=== PATIENT | male | born 1955 | race Caucasian/White ===

== ENCOUNTER 2022-10-14 10:36 | Inpatient (IN) | payer OTHER ==
--- OUTSIDE RECORDS SUMMARY | 2022-10-14 10:41 | XMS REPORT | Continuity of Care Document ---
:1955 Author Organization [facility] t Address [address] [place] [address] Care Team Providers Name Role Phone Shaji Rausch Primary Care Physician Messi Morgan Attending Clinician Unavailable Mando Mccoy Attending Clinician Unavailable LEONELA GOINS Attending Clinician Unavailable JENNA MOORE Attending Clinician Unavailable SANDRA VIZCARRA Attending Clinician Unavailable SILVIA CASAS Attending Clinician Unavailable LUISA PACHECO Attending Clinician Unavailable Tripp Raines Attending Clinician Unavailable Payers Payer Name Policy Type Policy Number Effective Date Expiration Date S roberto zumatek [facility] [id number] 2022 2023spring OON 00:00:00 00:00:00 [facility] [id number] 2016 PLAN SSI 00:00:00 [place] [id number] 2018 AFFILIATE 00:00:00 BCBS ADV HMO [id number] 2014 EXCHANGE 00:00:00 Problems Condition Condition Condition Status Onset Resolution Last Treating Co mments Source Name Details Category Date Date Treatment Clinician Date Acute Acute Disease Active Overview: [facility]: g of this Medical failure failure 00 note Center might be different from the original. SNOMED/[place] [id number] Bradycardi Bradycardi Disease Active [facility] Center Syncope Syncope Disease Active [facility] Hematuria Hematuria Disease Active [facility] [address] Disease Active [facility] elevation elevation 8-11 [facility] myocardial myocardial 00:00: Me dical infarction infarction 00 Ce nter (STEMI) of (STEMI) of anterolate anterolate ral wall, ral wall, initial initial episode of episode of care care Paroxysmal Paroxysmal Disease Active [facility] atrial atrial 8-11 [facility] fibrillati fibrillati 00:00: Me dical on on 00 Center 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 [facility] (current) (current) 8-11 [facility] use of use of 00:00: Medical anticoagul anticoagul 00 Ce nter ants ants Ventricula Ventricula Disease Active [facility] r 8[facility]11 [facility] tachycardi tachycardi 00:00: Me dical a a 00 Center Acute Acute Disease Active [facility] renal renal 8-09 [facility] failure failure 00:00: Medical 00 Center Cardiogeni Cardiogeni Disease Active [facility] shock c shock 7-20 [facility] 00:[facility] 00 Center Coronary Coronary Disease Active [facility] atheroscle atheroscle 7-20 [facility] kes rosis of rosis of 00:00: Medica l [place] 00 Center coronary coronary artery artery Coronary Coronary Disease Active [facility] angioplast angioplast 7-20 Ric[facility]le kes y status y status 00:00: Medica l 00 Center Allergies, Adverse Reactions, Alerts Allergy Allergy Status Severity Reaction(s) Onset Inactive Treating Comm ents Source Name Type Date Date Clinician No Known DA Active U [facility] 5-25 Allergie 00:00: s 00 No Known DA Active U [facility] 4-17 Allergie 00:00: s 00 No Known [facility]- Allergie 00:00: s 00 No Known DA Active U [facility] Drug 1- Allergie 00:00: s 00 Heparin Propensi Active Positive [facility] Analogue ty to 08-30 heparin [facility] adverse 00:00: antibody Medical reaction 00 by SHANNEN Center s OD 0.449. WILLIAM Pending. 08/30/13 3:05 PM Lorraine Lomeli MDNegativ e serotonin release assay. 1% low dose, 0% high dose. 09/02/2013 11:50 AP MD Michael Epstein MD 09/02/2013 11:47 AM HEPARIN Allergy Active [facility] ANALOGUE 08-30 [facility] S 00:[facility]: Medical 00 Center Family History Family Member Diagnosis Comments Start Date Stop Date Source Natural father Early [facility] Natural father Hearing loss [facility] Natural father Heart disease [facility] Natural father Hypertension [facility] Natural father Vision loss [facility] Natural mother Vision loss [facility] Social History Social Habit Start Date Stop Date Quantity Comments Source History of tobacco Current smoker [facility] History of Social 2016-08-07 2016-08-[address] function 00:00:00 00:00:00 Hospital Alcohol intake 2014-02-21 2014-02-21 [facility] (finding) Alcohol Comment 2014-02-21 2014-02-[address] [facility] 00:00:00 00:00:00 back on 11/2013 Medical C enter Cigarettes smoked 2013-10-12 2013-10-[address] [facility] current (pack per 00:00:00 00:00:00 Medical Center day) - Reported Cigarette 2013-10-12 2013-10-[address] [facility] pack-years 00:00:00 00:00:00 Medical Center Sex Assigned At [address] [facility] 00:00:00 00:00:00 Medical Center Smoking Status Start Date Stop Date Source Ex-smoker 2016-03-28 00:00:00 2016-03-28 00:00:00 [facility] Medications Ordered Filled Start Stop Current Ordering Indication Dosage Frequency Signature Comments Components Source Medication Medication Date Date Medication? Clinician (SIG) Name Name atorvastati Yes QD Take by Met alexis hall (LIPITOR) 2-[address] 10 MG 23:15: daily. [facility]ospita tablet 48 l carvedilol Yes Q.5D Take by Meth mariela (COREG) 2-[address] 12.5 MG 23:15: (two) Hospita tablet 48 times a l day with meals. losartan Yes QD Take by Method i (COZAAR) 2-[address] 100 MG 23:15: daily. Hospita tablet 48 l furosemide Yes Q.5D Take by Meth mariela (LASIX) 20 2-[address] mg tablet 23:15: (two) Hospita 48 times a l day. clopidogrel Yes QD Take by Met espinoza (PLAVIX) 75 2-[address] mg tablet 23:15: daily. Hospit a 48 l Immunizations Ordered Immunization Filled Immunization Date Status Commen ts Source Name Name Covid-19 Vaccine MRNA 2020-05-[address] [facility] (PF) 12yr+ 00:00:00 [facility] (Pfizer/BioNTech)(IMM6 ) Covid-19 Vaccine MRNA 2020-05-[address] [facility] (PF) 12yr+ 00:00:00 [facility] ([employer])(IMM6 ) Covid-19 Vaccine MRNA 2020-05-[address] [facility] (PF) 12yr+ 00:00:00 [facility] ([employer]/BioNTech)(IMM6 ) Covid-19 Vaccine MRNA 2020-05-[address] [facility] (PF) 12yr+ 00:00:00 [facility] ([employer])(IMM6 01) Influenza TIV (IM) 2014-02-[address] [facility] 00:00:00 [facility] Influenza TIV (IM) 2014-02-[address] [facility] 00[facility]00:00 [facility] PPD Test 2013-09-[address] [facility] 00:00:00 [facility] PPD Test 2013-09-[address] [facility] 00:00:00 [facility] Pneumococcal 2013-08-[address] [facility] Polysaccharide 00:00:00 Medical Ce nter (Pneumovax) Pneumococcal 2013-08-[address] [facility] Polysaccharide 00:00:00 Medical Ce nter (Pneumovax) Procedures This patient has no known procedures. Plan of Care Planned Activity Planned Date Details Comments Source Future Scheduled 2022-10-07 Influenza Vaccine (#1) [facility] 00:00:00 [code = Influenza Medical Ce nter Vaccine (#1)] Future Scheduled 2022-10-07 Influenza Vaccine (#1) [facility] 00:00:00 [code = Influenza Medical Ce nter Vaccine (#1)] Future Scheduled 2022-02-[address] [facility] Test 00:00:00 (12+) [code = Medical Center DEPRESSION SCREENING (12+)] Future Scheduled 2022-02-06 FALLS RISK SCREENING [facility] Test 00:00:00 [code = FALLS RISK Medical C enter SCREENING] Future Scheduled 2022-02-[address] [facility] Test 00:00:00 (12+) [code = Medical Center DEPRESSION SCREENING (12+)] Future Scheduled 2022-02-06 FALLS RISK SCREENING [facility] Test 00:00:00 [code = FALLS RISK Medical C enter SCREENING] Future Scheduled 2020-07-23 COVID-19 VACCINE (3 - [facility] 00:00:00 Booster for Pfizer Medical C enter series) [code = COVID-19 VACCINE (3 - Booster for Pfizer series)] Future Scheduled 2020-07-23 COVID-19 VACCINE (3 - [facility] 00:00:00 Booster for Pfizer Medical C enter series) [code = COVID-19 VACCINE (3 - Booster for Pfizer series)] Future Scheduled 2014-09-04 Screening for malignant [facility] Test 00:00:00 neoplasm of colon Medical Ce nter (procedure) [code = 820826758] Future Scheduled 2014-09-04 Screening for malignant [facility] Test 00:00:00 neoplasm of colon Medical Ce nter (procedure) [code = 702163147] Future Scheduled 2014-09-04 Screening for malignant [facility] Test 00:00:00 neoplasm of colon Medical Ce nter (procedure) [code = 318485162] Future Scheduled 2014-09-04 Screening for malignant [facility] Test 00:00:00 neoplasm of colon Medical Ce nter (procedure) [code = 025301054] Future Scheduled 2003-06-29 SHINGLES VACCINES ([address] [facility] Test 00:00:00 2) [facility] Future Scheduled 2003-06-29 SHINGLES VACCINES ([address] [facility] Test 00:00:00 2) [facility] 2)] Future Scheduled 1972 DTAP/TDAP/TD VACCINES [facility] 00:00:00 (1 - Tdap) [code = Medical C enter DTAP/TDAP/TD VACCINES (1 - Tdap)] Future Scheduled 1972 DTAP/TDAP/TD VACCINES [facility] 00:00:00 (1 - Tdap) [code = Medical C enter DTAP/TDAP/TD VACCINES (1 - Tdap)] Future Scheduled [address] [facility] Test 00:00:00 Counseling [facility] Medical Cente r Screening (12+) [code = Tobacco Cessation Counseling and Screening (12+)] Future Scheduled [address] [facility] Test 00:00:00 Counseling and Medical Cente r Screening (12+) [code = Tobacco Cessation Counseling and Screening (12+)] Future Scheduled 1953 CT Colonography (combo) [facility] Test 00:00:00 [code = CT Colonography [facility] (combo)] Future Scheduled 1953 Screening for malignant [facility] Test 00:00:00 neoplasm of colon Medical Ce nter (procedure) [code = 983487413] Future Scheduled 1953 Screening for malignant [facility] Test 00:00:00 neoplasm of colon Medical Ce nter (procedure) [code = 146277130] Future Scheduled 1955 Sigmoidoscopy [code = [facility] 00:[facility]:00 Sigmoidoscopy] Medical Cente r Future Scheduled 1953 CT Colonography (combo) [facility] Test 00:00:00 [code = CT Colonography [facility] (combo)] Future Scheduled 1953 Screening for malignant [facility] Test 00:00:00 neoplasm of colon Medical Ce nter (procedure) [code = 057697566] Future Scheduled 1953 Screening for malignant [facility] Test 00:00:00 neoplasm of colon Medical Ce nter (procedure) [code = 275703954] Future Scheduled 1955 Sigmoidoscopy [code = [facility] 00:00:00 Sigmoidoscopy] Medical Cente r Encounters Start End Encounter Admission Attending Care Care Encounter Source Date/Time Date/Time Type Type Clinicians Facility Department ID 2022-07-11 Emergency HFD HFD [id number] COLETTE - 18:33:44 [facility] ent 2021-05-25 Inpatient Elective Eddie [facility] [id number] [facility] 14:30:00 Messi 07 2021-02-26 Inpatient Elective Nadine [facility] [id number] [facility] 07:00:00 Mando 13 2020-12-09 Inpatient Nadine, [facility] [id number] [facility] 10:00:00 Mando 74 2022-10-12 2022-10-12 Outpatient SFA SFA [id number] Manuel 08:54:55 08:54:55 [id number] F Robinson 2022-10-07 2022-10-07 Outpatient SFA SFA [id number] Manuel 18:06:16 18:06:16 [id number] F [place] 2022-08-23 2022-08-24 [facility] [id number] [place] 10:11:00 21:30:00 [facility] 2022-08-23 2022-08-23 Emergency [facility] [id number] [place] 15:29:16 15:43:47 [facility] 2022-08-15 2022-08-16 Emergency [facility] [id number] [place] 19:46:00 10:25:00 [facility] 2022-08-16 2022-08-16 Emergency CARMITA, [facility] [id number] Dan[place] 01:56:00 02:32:36 [facility] 2022-08-15 2022-08-15 [place] [id number] [place] 17:05:19 19:45:00 [facility] 2022-07-11 2022-07-11 Emergency [facility] [id number] [place] 17:58:00 22:49:00 [facility] 2022-07-11 2022-07-11 Emergency [facility] [id number] [place] 19:25:53 19:40:09 Health 2022-07-11 2022-07-11 Emergency [facility] [id number] [place] 19:25:44 19:39:29 Health 2022-07-11 2022-07-11 Emergency [facility] [id number] [place] 18:31:39 18:43:01 Health 2022-07-11 2022-07-11 Emergency [facility] [id number] [place] 18:08:38 18:35:16 Health 2022-07-11 2022-07-11 Emergency [facility] [id number] [place] 18:08:28 18:33:27 [facility] 2022-06-30 2022-06-30 Outpatient Elective ISSA Rainesbandar [facility] [id number] [facility] 07:31:00 11:00:00 [place] 15 2021-02-26 2021-02-26 [id number] 05:38:00 05:38:00 13 2021-02-19 2021-02-19 Outpatient Elective ISSA Mccoybandar [facility] [id number] [facility] 10:05:00 10:06:00 Mando Robina 2021-02-19 2021-02-19 Outpatient Elective ISSA Mccoybandar [facility] [id number] [facility] 10:05:00 10:05:00 Mando Robina 2021-02-19 2021-02-19 [facility] [id number] [facility] 10:05:00 10:05:00 Robina 2020-12-01 2020-12-01 Outpatient Elective ISSA Mccoybandar [facility] [id number] [facility] 13:27:00 13:27:00 Mando 44 2020-05-28 2020-05-28 Outpatient EL [facility] [id number] [facility] 00:00:00 00:00:00 2020-05-27 2020-05-27 Outpatient [facility] [id number] SLE 00:00:00 00:00:00 2020-05-06 2020-05-[address] [facility] [id number] SLE 00:00:00 00:00:00 2017-03-28 2017-03-28 Emergency E [facility] [id number] 02:48:00 02:48:00 [facility] 2017-03-21 2017-03-21 Emergency E [facility] [id number] [address] 04:19:00 04:19:00 [facility] Results Test Description Test Time Test Comments Results Result Comments Source CBC W/AUTO DIFF WITH PLATELETS 2022-10-13 16:47:38 Test Item Value Reference Range Interpretation Comme nts WBC (test code = 1001) 4.8 K/UL 3.5-11.0 RBC (test code = 1002) 3.29 M/UL 4.50-6.10 L HEMOGLOBIN (test code = 7.6 G/DL 13.5-17.0 L 1003) HEMATOCRIT (test code = 25.6 % 40.0-51.0 L 1004) MCV (test code = 1005) 77.8 fL 80.0-99.0 L MCH (test code = 1006) 23.1 PG 25.0-33.0 L MCHC (test code = 1007) 29.7 G/DL 31.0-36.0 L RDW (test code = 1038) 20.4 % 11.5-15.0 H NEUTROPHILS (test code = 72.1 % AU TOMATED DIFFERENTIAL 1008) CONFIRMED WITH MANUAL SLIDE REVIEW. LYMPHOCYTES (test code = 14.3 % 1010) MONOCYTES (test code = 1011) 9.9 % EOSINOPHILS (test code = 2.3 % 1012) BASOPHILS (test code = 1013) 0.6 % IMMATURE GRANULOCYTES (test 0.8 % code = 1036) NUCLEATED RBCS (test code = 0.0 /100 WBC'S See_Comment [Automated message] The 1065) system which ge nerated this result transmit alivia reference range: 0.0. The reference range was not u sed to interpret this result as normal/abnormal . PLATELET COUNT (test code = 245 K/UL 338-164 1427) ABSOLUTE NEUTROPHILS (test 3.43 K/UL 1.50-7.50 code = 1066) ABSOLUTE LYMPHOCYTES (test 0.68 K/UL 1.00-4.00 L code = 1067) ABSOLUTE MONOCYTES (test 0.47 K/UL 0.20-1.00 code = 1068) ABSOLUTE EOSINOPHILS (test 0.11 K/UL 0.00-0.50 code = 1040) ABSOLUTE BASOPHILS (test 0.03 K/UL 0.00-0.20 code = 1069) ABS IMMATURE GRANULOCYTES 0.04 K/UL 0.00-0.10 (test code = 1020) ABS NUCLEATED RBCS (test 0.00 K/UL 0.00-0.11 code = 28837) COMMENTS (test code = 1016) (NOTE) MODERATE ANISOCYTOSIS SLIGHT HYPOCHRO MASIA SLIGHT MICROCYTOSIS SL IGHT POLYCHROMASIA F EW SCHISTOCYTES PL ATELETS APPEAR NORMAL UNLESS OTHERWISE INDIC ATED, ALL TESTING PERFORM ED AT [facility], [place] [address] LABORATORY DIRE CTOR: CHANDA ESTRADA M.D. CLIA NUMBER [id number] CAP ACCREDITATION N O. [id number] COMPREHENSIVE METABOLIC [id number] 04:37:22 Test Item Value Reference Range Interpretation Comments GLUCOSE (test code = 103 MG/DL 70-99 H 2216) BUN (test code = 19 MG/DL 8-23 2207) CREATININE (test 1.20 MG/DL 0.80-1.40 code = 2214) eGFR (2020 CKD-EPI) 65 ML/MIN/1.73 >60 (test code = 50158) CALC BUN/CREAT (test 16 RATIO 6-28 code = 2235) SODIUM (test code = 143 MEQ/L 594-729 4888) POTASSIUM (test code 4.0 MEQ/L 3.5-5.4 = 2227) CHLORIDE (test code 112 MEQ/L 95-107 H = 221) CARBON DIOXIDE (test 20 MEQ/L 19-31 code = 2206) CALCIUM (test code = 8.8 MG/DL 8.5-10.5 2208) PROTEIN, TOTAL (test 6.7 G/DL 6.1-8.3 code = 2229) ALBUMIN (test code = 3.8 G/DL 3.5-5.2 2200) CALC GLOBULIN (test 2.9 G/DL 1.9-3.7 code = 2240) CALC A/G RATIO (test 1.3 RATIO 1.0-2.6 code = 2234) BILIRUBIN, TOTAL 1.3 MG/DL See_Comment H [Automated message] (test code = 2207) The syste m which generated this result transmit alivia reference range : <=1.2. The refe rence range was not u sed to interpret th is result as normal/abnormal . ALKALINE PHOSPHATASE 77 U/L 40-125 (test code = 2204) AST (test code = 13 U/L 9-50 2217) ALT (test code = 10 U/L 5-50 2218) LIPID [id number] 04:37:22 Test Item Value Reference Range Interpretation Comments CHOLESTEROL (test 97 MG/DL <200 code = 2210) TRIGLYCERIDES (test 62 MG/DL <150 code = 2232) HDL CHOLESTEROL (test 30 MG/DL >39 L code = 2220) CALC LDL CHOL (test 53 MG/DL <100 NOTE: C ALCULATED LDL code = 2237) IS BASED ON ALFONSO-HEBERT METHOD WHICHINCLUDES ADJUSTABLE TRIGLYCERIDE:VL DL CHOLESTEROL RAT IO.THIS FACTOR VARIES B Y MEASURED TRIGLY CERIDE AND NON-HDLCHOL ESTEROL CONCENTRATIONS WITH INCREASED CALCU LATED LDL SEENIN HIGH ER TRIGLYCERIDE OR LOWER NON-HDL SPECIME NS. FOR MOREINFORMATION , SEE CLIENT ANNOUNCE MENT AT [email or web address] [email or web address] RATIO LDL/HDL 1.77 RATIO <3.55 (test code = 2238) Calculi, [id number] 07:40:00 Test Item Value Reference Interpretation Comments Range Source (test code = Comment See_Comment Right Ur eter [Automated STONE.0.1) message] The sy stem which generated this result transmitted ref erence range: .. The referenc e range was not used to int erpret this result as yamil l/abnormal. Color (test code = Brown See_Comment [Automat ed message] The CALCULIU.1) system which ge nerated this result transmit alivia reference range: .. The r eference range was not used to interpret this result as normal/abnormal . Size (test code = 6x4 mm See_Comment Multiple p ieces received. CALCULIU.2) Dimensions of t he largest piecereported. [Automated message] The sy stem which generated this result transmitted ref erence range: .. The referenc e range was not used to int erpret this result as yamil l/abnormal. Weight (test code = 175 mg See_Comment [Automa alivia message] The CALCULIU.3) system which ge nerated this result transmit alivia reference range: .. The r eference range was not used to interpret this result as normal/abnormal . Composition (test Comment See_Comment Percentage (Represents the % code = CALCULIU.4) compositi on) [Automated message] The sy stem which generated this result transmitted ref erence range: .. The referenc e range was not used to int erpret this result as yamil l/abnormal. Ca oxalate dihydrate TNP See_Comment [Autom ated message] The (test code = system which ge nerated this CALCULIU.5) result transmit alivia reference range: .. The r eference range was not used to interpret this result as normal/abnormal . Hydroxyapatite (test TNP See_Comment [Autom ated message] The code = STONE.6.2) system whi ch generated this result transmit alivia reference range: .. The r eference range was not used to interpret this result as normal/abnormal . Carbonate Apatite TNP See_Comment [Automate d message] The (test code = system which ge nerated this STONE.6.3) result transmit alivia reference range: .. The r eference range was not used to interpret this result as normal/abnormal . Ca oxalate monohydr. 90 % See_Comment [Autom ated message] The (test code = system which ge nerated this CALCULIU.6) result transmit alivia reference range: .. The r eference range was not used to interpret this result as normal/abnormal . Calcium phosphate TNP See_Comment [Automate d message] The (test code = system which ge nerated this CALCULIU.7) result transmit alivia reference range: .. The r eference range was not used to interpret this result as normal/abnormal . Magnesium karime phos TNP See_Comment [Autom ated message] The (test code = system which ge nerated this CALCULIU.8) result transmit alivia reference range: .. The r eference range was not used to interpret this result as normal/abnormal . Uric acid (test code 10 % See_Comment [Autom ated message] The = CALCULIU.9) system which g enerated this result transmit alivia reference range: .. The r eference range was not used to interpret this result as normal/abnormal . Uric acid dihydrate TNP See_Comment [Automa alivia message] The (test code = system which ge nerated this CALCULIU.10) result transmit alivia reference range: .. The r eference range was not used to interpret this result as normal/abnormal . Ammonium acid urate TNP See_Comment [Automa alivia message] The (test code = system which ge nerated this CALCULIU.11) result transmit alivia reference range: .. The r eference range was not used to interpret this result as normal/abnormal . Sodium acid urate TNP See_Comment [Automate d message] The (test code = system which ge nerated this CALCULIU.12) result transmit alivia reference range: .. The r eference range was not used to interpret this result as normal/abnormal . 2,8 Dihydroxyadenine TNP See_Comment [Autom ated message] The (test code = system which ge nerated this STONE.12.2) result transmit alivia reference range: .. The r eference range was not used to interpret this result as normal/abnormal . Xanthine (test code TNP See_Comment [Automa alivia message] The = STONE.12.3) system which g enerated this result transmit alivia reference range: .. The r eference range was not used to interpret this result as normal/abnormal . Ca hydrogen phos. TNP See_Comment [Automate d message] The (test code = system which ge nerated this CALCULIU.13) result transmit alivia reference range: .. The r eference range was not used to interpret this result as normal/abnormal . Cystine (test code = TNP See_Comment [Autom ated message] The CALCULIU.14) system which ge nerated this result transmit alivia reference range: .. The r eference range was not used to interpret this result as normal/abnormal . Cholesterol (test TNP See_Comment [Automate d message] The code = CALCULIU.15) system w [employer] generated this result transmit alivia reference range: .. The r eference range was not used to interpret this result as normal/abnormal . Calcium bilirubinate TNP See_Comment [Autom ated message] The (test code = system which ge nerated this CALCULIU.16) result transmit alivia reference range: .. The r eference range was not used to interpret this result as normal/abnormal . Bilirubin (test code TNP See_Comment [Autom ated message] The = STONE.16.2) system which g enerated this result transmit alivia reference range: .. The r eference range was not used to interpret this result as normal/abnormal . Calcium Palmitate TNP See_Comment [Automate d message] The (test code = system which ge nerated this STONE.16.3) result transmit alivia reference range: .. The r eference range was not used to interpret this result as normal/abnormal . Calcium carbonate TNP See_Comment [Automate d message] The (test code = system which ge nerated this CALCULIU.17) result transmit alivia reference range: .. The r eference range was not used to interpret this result as normal/abnormal . Calcium Stearate TNP See_Comment [Automated message] The (test code = system which ge nerated this STONE.16.4) result transmit alivia reference range: .. The r eference range was not used to interpret this result as normal/abnormal . Triamterene (test TNP See_Comment [Automate d message] The code = CALCULIU.18) system [employer] generated this result transmit alivia reference range: .. The r eference range was not used to interpret this result as normal/abnormal . Drug or Metabolite TNP See_Comment [Automat ed message] The (test code = system which ge nerated this STONE.18.2) result transmit alivia reference range: .. The r eference range was not used to interpret this result as normal/abnormal . Newberyite (test TNP See_Comment [Automated message] The code = CALCULIU.19) system [employer]ile[employer] generated this result transmit alivia reference range: .. The r eference range was not used to interpret this result as normal/abnormal . Dried Blood (test TNP See_Comment [Automate d message] The code = CALCULIU.20) system w hich generated this result transmit alivia reference range: .. The r eference range was not used to interpret this result as normal/abnormal . Cellular Material TNP See_Comment [Automate d message] The (test code = system which ge nerated this CALCULIU.21) result transmit alivia reference range: .. The r eference range was not used to interpret this result as normal/abnormal . Other Component TNP See_Comment [Automated message] The (test code = system which ge nerated this STONE.21.2) result transmit alivia reference range: .. The r eference range was not used to interpret this result as normal/abnormal . Comment (test code = TNP See_Comment [Autom ated message] The CALCULIU.25) system which ge nerated this result transmit alivia reference range: .. The r eference range was not used to interpret this result as normal/abnormal . Comment (test code = TNP See_Comment [Autom ated message] The CALCULIU.26) system which ge nerated this result transmit alivia reference range: .. The r eference range was not used to interpret this result as normal/abnormal . Photo (test code = Comment See_Comment Photograp h will follow under STONE.26.2) a separate cove r [Automated message] The sy stem which generated this result transmitted ref erence range: .. The referenc e range was not used to int erpret this result as yamil l/abnormal. Please note: (test Comment See_Comment Calculi r eport will follow code = CALCULIU.27) via comp uter, mail or courierdelivery . [Automated message] The sy stem which generated this result transmitted ref erence range: .. The referenc e range was not used to int erpret this result as yamil l/abnormal. Comment: (test code Comment See_Comment Physicia n questions regarding = CALCULIU.28) Calculi Vanessa sis contact[facility] at: [phone]. [ Automated message] The sy stem which generated this result transmitted ref erence range: .. The referenc e range was not used to int erpret this result as yamil l/abnormal. Disclaimer: (test Comment See_Comment This test was developed and code = CALCULIU.29) its perf ormance characteristics determined by [facility]. It has not been cleared or appr ovedby the Food and Drug Administration. Performed at: [facility] [address], [place], [place] [id number] Di jonatan: Mando Whitlock MD, Phon e: [phone] [Automated mess age] The system which ge nerated this result transmit alivia reference range: .. The r eference range was not used to interpret this result as normal/abnormal . UC, Urine [id number] 07:30:00 Test Item Value Reference Range Interpretation Comments UC, Urine Culture (test NO GROWTH AFTER 48 code = UC) HOURS Comment: URINE CULTURE RIGHT RENAL PELVISUA, Urinalysis [id number] 11:20:00 Test Item Value Reference Range Interpretation Comments Color,Urine (test code = UCOL) [place] Yellow A Clarity,Urine (test code = Cloudy Clear A UCLAR) PH,Urine (test code = UPH.XX) 6.0 5.5-8.5 Specific [place],Urine (test >= 1.030 1.005-1.030 N code = USG) Blood,Urine (test code = UBLD) Large cells/uL Negative A Protein,Urine (test code = >=300 mg/dL Negative A UPRO) Glucose,Urine (UA) (test code Negative mg/dL Negative = UGLU) Ketones,Urine (test code = Trace mg/dL Negative A UKET) Nitrate,Urine (test code = Negative Negative UNIT) Bilirubin,Urine (test code = Small mg/dL Negative A UBIL) Urobilinogen,Urine (test code 1.0 mg/dL Negative = UURO) Leukocyte Esterase,Urine (test Large cells/uL Negative A code = ULEU) Ictotest,[id number] 11:20:00 Test Item Value Reference Range Interpretation Comments Ictotest,Urine (test code = Confirm Negative Confirm Neg UICTO) UC, Urine [id number] 11:20:00 Test Item Value Reference Range Interpretation Comments UC, Urine Culture (test NO GROWTH AFTER 48 code = UC) HOURS Complete Blood Count Auto [id number] 11:15:00 Test Item Value Reference Range Interpretation Comments White Blood Count (test code = 6.6 x10 3/uL 4.4-10.5 N WBCT) Red Blood Count (test code = 4.78 x10 6/uL 4.10-5.70 N RBC) Hemoglobin (test code = HGBT) 15.1 g/dL 13.4-17.4 N Hematocrit (test code = HCTT) 43.6 % 38.7-52.0 N Mean Corpuscular Volume (test 91.20 fL 80.00-100.00 N code = MCV) Mean Corpuscular Hemoglobin 31.6 pg 27.0-32.5 N (test code = MCH) Mean Corpuscular HGB Conc 34.60 g/dL 32.00-37.50 N (test code = MCHC) RDW Coefficient of Variation 13.8 % 11.5-14.5 N (test code = RDWCV) Platelet Count (test code = 172.0 x10 3/uL 140.0-440.0 N PLTT) Mean Platelet Volume (test 10.8 fL code = MPV) Immature Granulocytes % (Auto) 0.5 % 0.0-5.0 N (test code = IMMGRAN%) Neutrophils % (Auto) (test 71.5 % 36.0-70.0 H code = NE%) Lymphocytes % (Auto) (test 14.4 % 12.0-44.0 N code = LY%) Monocytes % (Auto) (test code 11.9 % 0.0-11.0 H = MO%) Eosinophils % (Auto) (test 1.4 % 0.0-7.0 N code = EO%) Basophils % (Auto) (test code 0.3 % 0.0-2.0 N = BA%) Immature Granulocytes # (Auto) 0.03 x10 3/uL (test code = IMMGRAN#) Neutrophils # (Auto) (test 4.7 x10 3/uL 1.6-7.4 N code = NE#) Lymphocytes # (Auto) (test 0.94 x10 3/uL 0.50-4.60 N code = LY#) Monocytes # (Auto) (test code 0.78 x10 3/uL 0.00-1.20 N = MO#) Eosinophils # (Auto) (test 0.09 x10 3/uL 0.00-0.74 N code = EO#) Basophils # (Auto) (test code 0.02 x10 3/uL 0.00-0.21 N = BA#) nRBC Abs (test code = NRBCA) 0 nRBC Pct (test code = NRBCP) 0 % Basic Metabolic [id number] 11:15:00 Test Item Value Reference Range Interpretation Comments SODIUM (test code = NA) 143.0 mmol/L 136.0-145.0 N Potassium,K (test code = K) 3.6 mmol/L 3.0-5.1 N Chloride (test code = CL) 111 mmol/L 98-107 H Carbon Dioxide (test code = CO2) 25 mmol/L 20-31 N Anion Gap (test code = GAP) 7 mmol/L 5-15 N Blood Urea Nitrogen (test code = 19 mg/dL 9-23 N BUN) Creatinine (test code = CREATT) 1.17 mg/dL 0.55-1.02 H Creatinine Clr Calc Pharmacy 67.25 mL/min (test code = CRCLPHA) Estimated GFR ( Lissette > 60 mL/min/1.73m2 (test code = EGFRAA) Estimated GFR (Non Afr Lissette > 60 mL/min/1.73m2 (test code = EGFRNAA) BUN/Creatinine Ratio (test code 16 ratio 10-20 N = BCRATIO) Glucose (test code = GLU) 107 mg/dL 74-106 H Osmolality,Calculated (test code 297.7 = OSMOC) Calcium (test code = CA) 9.1 mg/dL 8.3-10.6 N XR Abdomen KUB 1 [id number] 19:20:02Patient: ALETHA PUGH Date/Time03/07/2018 18:55 CSTReason for ExamAbdominal pa inReportLOCATION: [id number]: 62-year-old male with abdominal pain.COMMENT:Supine radiographs of theabdomen were obtained at 6:22 p.m.The intestinal gas pattern is unremarkable. There is no evidence of free air or free fluid and there is no evidence of organomegaly or masses. The visualized lung bases are clear. The skeleton and soft tissues are unremarkable.A double-J right ureteral stent is present.IMPRESSION:Unremarkable radiographic examination of the abdomen. Final Dictated by: MD Avery Robert LDictated DT/TM: 03/07/2018 7:19 pmSigned by: MD Avery Robert LSigned (Electronic Signature): 03/07/2018 7:20 pmCT Abdomen and Pelvis w/o [id number] 00:28:02Patient: ALETHA PUGH Date/Time03/06/2018 00:19 CSTReason for ExamAbdominal painReportEXAM: CT ABDOMEN AND PELVIS WITHOUT CONTRASTINDICATION: Abdominal painCOMPARISON: CT dated February 08, 2007TECHNIQUE: Routine axial CT images of the abdomen and pelvis were obtained without intravenous contrast. Coronal and sagittal reformatted images were submitted for review.IV contrast: NoneDLP: 500.8 mGy-cmFINDINGS:The lung bases are clear. The heart size is normal. No pleural or pericardial effusion.The pancreas is edematous with peripancreatic fluid consistent with acute pancreatitis. No pseudocyst is identified. There are inflammatory changes involving the duodenum. There is a calcification noted within the gallbladder which is otherwise decompressed. The noncontrast appearance of the liver, spleen and adrenal glands are are normal. No intrahepatic biliary ductal dilatation.There isabnormal configuration of the left kidney which appears severely atrophic with multiple calcifications identified. There is prominence of the right renal collecting system with a double-J ureteral stent seen in place. There are nonobstructing stones in the right kidney with the largest measuring 1 cm.The urinary bladder is decompressed.The stomach and large bowel are normal. No evidence of bowel obst ruction.No lymphadenopathy is identified in the abdomen or pelvis. The IVC is normal. The abdominal aorta is normal in caliber. There are atherosclerotic calcifications of the abdominal aorta.The osseous structures are normal.IMPRESSION:1. Acute edematous pancreatitis. No pseudocyst formation is identified. There are associated inflammatory changes involving the duodenum.2. Calcification within the gallbladder likely representing a gallstone. Further evaluation with right upper quadrant ultrasound should be considered.3. Atrophic left kidney. Double-J ureteral stent noted on the right. Multiple nonobstructing stones bilaterally.LOCATION: [id number] CT exam was performed according to our departmental dose optimization program, which includes automated exposure control, adjustment of the mA and/or kV according to the patient size and/or use of iterative reconstructive technique. Final Dictated by: MD Velazquez Melanie CDictated DT/TM: 03/06/2018 0:22 amSigned by: MD Velazquez Melanie CSigned (Electronic Signature): 03/06/2018 0:28 amCT Abdomen and Pelvis w/o Contrast 2018-03-06 00:28:02Patient: ALETHA PUGH Date/Time03/06/2018 00:19 CSTReason for ExamAbdominal painReportEXAM: CT ABDOMEN AND PELVIS WITHOUT CONTRASTINDICATION: Abdominal painCOMPARISON: CT dated [facility]2007TECHNIQUE: Routine axial CT images of the abdomen and pelvis were obtained without intravenous contrast. Coronal and sagittal reformatted images were submitted for review.IV contrast: NoneDLP: 500.8 mGy-cmFINDINGS:The lung bases are clear. The heart size is normal. No pleural or pericardial effusion.The pancreas is edematous with peripancreatic fluid consistent with acute pancreatitis. No pseudocyst is identified. There are inflammatory changes involving the duodenum. There is a calcification noted within the gallbladder which is otherwise decompressed. The noncontrast appearance of the liver, spleen and adrenal glands are are normal. No intrahepatic biliary ductal dilatation.There isabnormal configuration of the left kidney which appears severely atrophic with multiple calcifications identified. There is prominence of the right renal collecting system with a double-J ureteral stent seen in place. There are nonobstructing stones in the right kidney with the largest measuring 1 cm.The urinary bladder is decompressed.The stomach and large bowel are normal. No evidence of bowel obstruction.No lymphadenopathy is identified in the abdomen or pelvis. The IVC is normal. The abdominal aorta is normal in caliber. There are atherosclerotic calcifications of the abdominal aorta.The osseous structures are normal.IMPRESSION:1. Acute edematous pancreatitis. No pseudocyst formation is identified. There are associated inflammatory changes involving the duodenum.2. Calcification within the gallbladder likely representing a gallstone. Further evaluation with right upper quadrant ultrasound should be considered.3. Atrophic left kidney. Double-J ureteral stent noted on the right. Multiple nonobstructing stones bilaterally.LOCATION: J14Guea CT exam was performed according to our departmental dose optimization program, which includes automated exposure control, adjustment of the mA and/or kV a ccording to the patient size and/or use of iterative reconstructive technique. Final Dictated by: MD Velazquez Melanie CDictated DT/TM: 03/06/2018 0:22 amSigned by: MD Velazquez Melanie CSigned (Electronic Signature): 03/06/2018 0:28 amCT Abdomen and Pelvis w/o [id number] 02:36:41Patient: ALETHA PUGH Date/Time12/27/2017 02:05 CSTReason for ExamAbdominal painReportAFTER HOURS SERVICE ON: 12/27/2017 2:33 AMCT Scan of the Abdomen and Pelvis Without ContrastLocation Code [id number]: Abdominal painTechnique: Axial and reconstructed coronal scans were performed on a helical scanner pre oral and IV contrast. Study is limited secondary to lack of oral and IV contrast.One or more of the following dose reduction techniques were used: Automated exposure control, adjustment of the mA and/or kV according to patient size, and/or utilization of iterative reconstruction technique.Findings:There is trace pericardial effusion. Gallbladder is contracted containing gallstones. CBD is dilated. There are moderate peripancreatic inflammatory changes consistent with acute pancreatitis. No definite system formation or abscess but examination is limited without IV contrast. Liver and spleen are within normal limits.Adrenal glands are unremarkable. Left kidney is atrophic. Several nonobstructing calculi are seen in the left kidney. There is no hydronephrosis on the left.There is a double-J ureteral stent on the right was moderate hydronephrosis. The proximal aspect of the stent is located in the upper pole. There is a 1.4 cm in cluster of nonobstructing calculi in theright lower pole an additional 1 cm nonobstructing calculus in the right lower pole. There are no bladder calculi.There is no free air or small bowel obstruction. Colon and appendix are unremarkable.Impression:1. Acute pancreatitis. No definite abscess.2. Cholelithiasis.3. Moderate right hydronephrosis with a double-J ureteral stent in place. Several nonobstructing right renal calculi.4. Trace pericardial effusion. Final Dictated by: MD Berrios Mohammad TDictated DT/TM: 12/27/2017 2:33 amSigned by: MD Berrios Mohammad TSigned (Electronic Signature): 12/27/2017 2:36 amCT Abdomen and Pelvis w/o Contrast 2017-12-27 02:36:41Patient: ALETHA PUGH Date/Time12/27/2017 02:05 CSTReason for ExamAbdominal painReportAFTER HOURS SERVICE ON: 12/27/2017 2:33 AMCT Scan of the Abdomen and Pelvis Without Contrast Location Code O31Aunctkl: Abdominal painTechnique: Axial and reconstructed coronal scans were performed on a helical scanner pre oral and IV contrast. Study is limited secondary to lack of oral and IV contrast.One or more of the following dose reduction techniques were used: Automated exposure control, adjustment of the mA and/or kV according to patient size, and/or utilization of iterative reconstruction technique.Findings:There is trace pericardial effusion. Gallbladder is contracted containing gallstones. CBD is dilated. There are moderate peripancreatic inflammatory changes consistent with acute pancreatitis. No definite system formation or abscess but examination is limited without IV contrast. Liver and spleen are within normal limits.Adrenal glands are unremarkable. Left kidney is atrophic. Several nonobstructing calculi are seen in the left kidney. There is no hydronephrosis on the left.There is a double-J ureteral stent on the right was moderate hydronephrosis. The proximal aspect of the stent is located in the upper pole. There is a 1.4 cm in cluster of nonobstructing calculi in theright lower pole an additional 1 cm nonobstructing calculus in the right lower pole. There are no bladder calculi.There is no free air or small bowel obstruction. Colon and appendix are unremarkable.Imp ression:1. Acute pancreatitis. No definite abscess.2. Cholelithiasis.3. Moderate right hydronephrosis with a double-J ureteral stent in place. Several nonobstructing right renal calculi.4. Trace pericardial effusion. Final Dictated by: MD Berrios Mohammad TDictated DT/TM: 12/27/2017 2:33 a mSigned by: MD Berrios Mohammad TSigned (Electronic Signature): 12/27/2017 2:36 [id number] 04:48:50AFTER HOURS SERVICE ON: 03/21/2017 4:48 AMRight Tibia and Fibula, 4 ViewsLocation Code [id number]: Ashly nFindings:There is no fracture or dislocation. There is no periosteal elevation. No lytic or blasticlesions. Skin zachery noted in the proximal lowerextremity.Impression:No acute findings.US Renal Complete [facility] [address] [place], [place] [id number] Patient Name: Aletha Pugh Medical Record#: [id number] Address: [address] [place] [address] City/State/Zip: [place] [address]: Messi Morgan DO, PGY Insurance: [employer] [facility] /Age/Sex: 1955/65/M Medicaid [place] Admit/Reg Date: 05/25/[address]: Messi Morgan DO, PGY Location: [facility]/ PCP: Yon Dove MD Date of Service: 05/25/21Order (s): US Renal Complete CPT Code: 31462 Report Number: [id number] Reason for Exam: N20.0 Exam: Renal ultrasound. CLINICAL HISTORY: N20.0. LOCATION: D4. FINDINGS: Real-time grayscale sonographic evaluation is performed of the kidneys with limited color Doppler evaluation. Comparison is made with CT abdomen/pelvis without and with contrast dated December 09, 2020. The kidneys demonstrate normalcortical echogenicity. The left kidney appears irregular consistent with the appearance seen on prior CT. There is mild right hydronephrosis that persists following voiding. The right kidney measures 12.7 cm and the left kidney measures 9.2 cm. Multiple echogenic foci are noted bilaterally consistent with calculi measuring up to 1.3 cm. There is a 1.3 cm simple cyst within the left kidney. No free fluid is noted. There is a moderate volume within the bladder prior to voiding. IMPRESSION: 1. There are multiple echogenic foci bilaterally consistent with calculi measuring up to 1.3 cm. 2. There is mild right hydronephrosis. 3. The left kidney appears irregular consistent with the appearance seen on prior CT and is significantly smaller than the right kidney. 4. There is a 1.3 cm simple cyst within the left kidney. Electronically signed by: James Briones MD 05/25/2021 4:26 PM CDT Dictated By: James Briones MD 05/25/21 160 Signed By: James Briones MD 05/25/21 1628 TD/TT: 05/25/21 160 Tech: Pets are family tooUC WEST CHESTER HOSPITALNuVasive cc: [id number]; [id number]* Yon Dove MD; Messi Morgan DO, PGYEKG Electrocardiogram [address] [address] Patient Name: Aletha Pugh Medical Record#: [id number] Address: [address] [place] [address] City/State/Zip: [place] [address]: Mando Mccoy MD Insurance: [id number] [facility] /Age/Sex: 1955/65/M [facility] Admit/Reg Date: 02/19/[address]: Mando Mccoy MD Location: [facility]/ PCP: Yon Dove MD Date of Service: 02/19/21 Order (s): EKG Electrocardiogram CPT Code: 64249 Report Number: [id number] Reason for Exam: pre op testing Atrial fibrillation Ventricular premature complex Nonspecific intraventricular conduction delay B orderline low voltage, extremity leads Consider inferior infarct Probable anteroseptal infarct, old Summary: Abnormal ECG Dictated By: Frederick Waldron MD 02/19/21 1126 Signed By: Frederick Waldron MD 02/20/21 1111 TD/TT: 02/19/21 112 Tech: [facility] tooSIER[facility] cc: [id number]; [id number]* Yon Dove MD; Mando Mccoy MDEKG Electrocardiogram [address] [address] Patient Name: Aletha Pugh Medical Record#: [id number] Address: [address] City/State/Zip: [place] [address]: Mando Mccoy MD Insurance: [employer] Rpo /Age/Sex: 1955/65/M [facility] [employer] Admit/Reg Date: 02/19/[address]: Mando Mccoy MD Location: [facility]/ PCP: Yon Dove MD Date of Service: 02/19/21 Order (s): EKG Electrocardiogram CPT Code: 32152 Report Number: [id number] Reason for Exam: pre op testing Atrial fibrillation Ventricular premature complex Nonspecific intraventricular conduction delay Borderline low voltage, extremity leads Consider inferior infarct Probable anteroseptal infarct,old Summary: Abnormal ECG Dictated By: Frederick Waldron MD 02/19/21 1126 Signed By: Frederick Waldron MD 02/20/21 1111 TD/TT: 02/19/21 1126 Tech: [facility] cc: [id number]; [id number]* Yon Dove MD; MAURA Kumar abdomen pelvis wo/w con [address] [address] Patient Name: Aletha Pugh Medical Record#: [id number] Address: [address] [facility] City/State/Zip: [place] [address]: Mando Mccoy MD Insurance: [employer] Rpo /Age/Sex: 1955/65/M [facility] [employer] [facility] Admit/Reg Date: 12/09/[address]: Mando Mccoy MD Location: [facility]/ PCP: Yon Dove MD Date of Service: 12/09/20 Order (s): CT abdomen pelvis wo/w con CPT Code: 94094 Report Number: [id number] Reason for Exam: R31.21 Asymtomatic microscopic hematuria EXAMINATION: CT abdomen pelvis wo/w con CLINICAL INDICATION: R31.21Asymptomatic microscopic hematuria TECHNIQUE: Thin section axial pre- and post-contrast contiguous images were obtained through the abdomen and pelvis followed by coronal and sagittal multiplanar reformations. The postcontrast images were obtained in the venous and 10 minute delayed phases. One or more of the following dose reduction techniques were used: Automated exposure control, adjustment of themA and/or kV according to patient size, and/or iterative reconstruction. COMPARISON: CT abdomen and pelvis without contrast dated September 03, 2018 FINDINGS: Lower Chest: A small pericardial effusion is noted. The heart is mildly enlarged. The visualized lung bases are clear. Liver: The liver is normal insize and contour. No hepatic mass is identified. The bile ducts are of normal caliber. Gallbladder: The gallbladder is contracted. Small calcified stones are noted at the gallbladder fundus. Pancreas: Unremarkable. Spleen: Normal in size and contour. Adrenals: Unremarkable. Kidneys and ureters: Moderate right hydroureteronephrosis is noted. A right ureteral stent is in place. The proximal loop is formed in the mid calyx. The distal loop is well formed in the urinary bladder. Nonobstructing stones inthe right lower pole calyces measure up to 13 x 5 mm in size. No right ureteral stone is seen. The left kidney is chronically atrophied with cortical thinning. Nonobstructing stones in the left kidney measure up to 12 mm in size. Bowel: The small bowel loops are nondilated. There is no evidence of a small bowel obstruction. Mild colonic diverticulosis is noted. The appendix is normal. Bladder/Reproductive Organs: The urinary bladder wall is circumferentially thickened. This is accentuated by underdistention. The prostate gland measures 4.6 x 3.2 x 3.9 cm. Peritoneum and retroperitoneum: No free airor ascites is identified. No retroperitoneal mass or hemorrhage is present. Lymph nodes: No lymphadenopathy is identified. Vascular: Atherosclerotic calcifications are noted in the aorta and iliac arteries. Abdominal wall: No hernia or mass. Bones: No acute fracture or suspicious bony lesion is identified. IMPRESSION: 1. Moderate right hydroureteronephrosis. A right ureteral stent is well-positioned. 2. Bilateral nephrolithiasis. 3. Circumferential thickening of the urinary bladder wall. Correlate for cystitis or urinary tract infection. 4. Mild prostatomegaly. 5. Mild colonic diverticulosis. 6. Mild cardiomegaly and small pericardial effusion. Electronically signed by: Fransisco Miller MD 12/09/2020 2:01 PM CDT Dictated By: Fransisco Miller MD 12/09/201245 Signed By: Fransisco Miller MD 12/09/201245 TD/TT: 12/09/201245 Tech: [id number] cc: [id number]; [id number]* Yon Dove MD;Mando Mccoy MD Notes Date/Time Note Provider Source 2021-02-26 08:09:00-00:00 [facility] [address] [place] [address] Urology Operative Note Signed Patient: Aletha Pugh Medical Record#: [id number] : 1955 Acct:[id number] Age/Sex: 65 / M ADM Date: 02/26/21 Loc: [facility] Room: Report Number: [id number]: Mando Mccoy MD Urology Operative Note Date of Procedure: 02/26/21 Preoperative Diagnosis: Right retained ureteral stent, right nephrolithiasis Procedure Performed: Cystosc opy, right retrograde pyelogram, right ureteroscopy, stone basketing, stent exchange Surgical Service: Urology Primary Surgeon: Mando Mccoy [employer] Technician: Messi Morgan Consent Obtained: obtained Time Out Performed: Yes Anesthesia: general Detailed Description of Procedure: Indications for the procedur e: Patient is a 65-year-old male who has had an indwelling stent for approximately 4 years. He pr eviously had a another encrusted stent that was treated at today requiring extensive laser li thotripsy of a right renal calculus and balloon dilation of a right ureteral stricture. He subse quently had a stent replaced, but it has remained in place since then. Procedure detail: Informed c onsent was obtained in the preoperative area. Patient was transferred to the operating room. The p atient was repositioned to the operating room table. The patient underwent general anesthesia and was intubated. The patient received perioperative antibiotics. SCDs were applied and pressu re points padded. The patient was repositioned to dorsal lithotomy position. A time-out was per formed. The patient was prepped and draped in usual sterile fashion. A 21 Moldovan rigid cystoscope was advanced into the urethra noting the findings below. A 6 Moldovan ureteral catheter was advanc ed up into the kidney and retrograde pyelogram performed. The stent grasper was inserted and the indwelling stent withdrawn under direct visualization and fluoroscopic guidance. A wire was advance d to the ureteral catheter and catheter removed. A dual-lumen catheter was advanced over the wire. A 2nd superstiff wire was placed. Dual-lumen catheter was removed. A ureteral access sheath was a dvanced over the superstiff wire and inner trocar and stiff wire removed. A ureteral scope wa s advanced up to the level of the kidney noting the findings below. We proceeded to sequentially ba sket the small stones ranging anywhere from 1-3 mm in diameter. We basketed all that would fit inside the basket. There was some small tiny residual stone fragments remaining which will pass ov er time. The ureter was evaluated on the way out. And ureteral access sheath removed. A 6 Moldovan b y 26 cm double-J ureteral stent was advanced over the wire under direct visualization and fluoroscop ic guidance. The wire was removed. The bladder was drained and scope removed. Hospital Course: None Disposition: Return to current living [facility] Medications: Written Follow up: Monday the February at 10:[address] Mccoy for stent removal [id number] Discharge Instructions: Given Findings: 1. Urethra was normal caliber and contour 2. Bladder without tumors, l esions, stones or abnormalities. 3. Indwelling double-J ureteral stent distal coil noted with subtle incrustation. This was removed intact. 3. Ureteral orifices in orthotopic position effl uxing clear urine. 4. Retrograde pyelogram with severely dilated re nal pelvis. Normal ureter. 5. Under direct visualizatio n the pelvis was noted to be dilated, normal calices, 6. Numerous small calculi in lower pole calices measuring approximately 1-3 mm for a combined diameter of approximately 1. 5 cm. All sizable stone fragments were basketed with some residual small stones remained that were simply too small to basket. 7. Retrograde pyelogram afte r pyeloscopy with good intact renal pelvis, no extravasation of contrast. 8. Upon exiting the ureter t here was a small submucosal flap in the proximal ureter which was small and will heal over time with indwelling stent. 9. A 6 Moldovan by 26 cm doubl e-J ureteral stent with string in place in good position under fluoroscopic and cystoscopic guidance. String emanating from penis at conclusion of case. Wound Class: CC - clean-contaminated Estimated Blood Loss: None IV Fluids (ml): See anesthesia note Urine Output (mls): Not recorded Prosthetic devices, grafts, tissues, transplants or implants: Refer to Intraop Record Drains: None Complications: none Condition: stable Disposition: PACU #01 Source/Specimen Description: Right renal calculi Test: Other (Chemical analysis) Disposition: Pathologist Dictated By: Messi Morgan DO, PGY Dictated By: Mando Mccoy MD Signed By: Messi Morgan DO, PGY 02/26/21820 Mando Mccoy MD 02/28/211838 Mando Mccoy MD 02/28/211838 DD/ 8 TD/TT: 02/26/21808 Manager Supplier: BAUDILIO cc: NYLA; BAUDILIO; [id number]* Yon Dove MD; Mando Mccoy MD; Messi Morgan DO, PGY
[2022-10-14 12:13] LABS: Absolute Lymphocytes (CBC) 0.8 K/uL (0.7-4.9); Hematocrit 26.8 % (39.6-49.0); Lymphocytes % 13.4 % (15.3-44.8); MCV 75.4 fL (80-100); MPV 8.4 fL (7.6-11.3); Platelets 221 thou/uL (152-406); RBC Red Blood Cell Count 3.56 M/uL (4.33-5.43)
[2022-10-14 12:14] LABS: Specific Gravity 1.019 (1.005-1.030); Urine Bacteria None Seen /HPF (<20); Urine Bilirubin NEGATIVE (Negative); Urine Blood Negative (Negative); Urine Clarity Clear (Clear); Urine Color Light-Yellow (Yellow); Urine Glucose NEGATIVE (Negative); Urine Mucus Slight /HPF (None Seen); Urine Protein 1+ (Negative); Urine Urobilinogen Normal (Normal); Urine pH 6.5 (5.0-7.0)
[2022-10-14 12:17] LABS: Protime INR 1.68
[2022-10-14 12:34] LABS: Albumin 3.5 g/dL (3.4-5.0); Bilirubin Total 1.6 mg/dL (0.2-1.0); Potassium 3.7 mEq/L (3.5-5.1); Protein, Total 7.7 g/dL (6.4-8.2); Troponin High Sensitivity 14.4 pg/mL (<58.9)
--- NOTE | 2022-10-14 12:50 | RAD REPORT ---
EXAM DESCRIPTION: RAD - Chest Single View - 10/14/2022 12:20 pm CLINICAL HISTORY: malaise/SOB Chest pain. COMPARISON: No comparisons FINDINGS: Portable technique limits examination quality. Mild interstitial pulmonary edema is suspected. Small bilateral pleural effusions, slightly greater o n the left. The heart is moderately enlarged in size. Fracture the right clavicle is present, without significant healing noted. IMPRESSION: Mild CHF. Age indeterminate right clavicle fracture, although no significant callus formation or healing is see n. Suggest correlation with trauma history in this region.
[2022-10-14 12:56] LABS: Anisocytosis 1+; Blood Morphology Comment NOTED (NOT SEEN); Hypochromasia 1+; Platelet Estimate ADEQ; White Blood Cell Scan 0 (OK)
--- NOTE | 2022-10-14 13:12 | EDPHYS ---
Physician Documentation [facility] Name: Micky Pugh Age: 67 yrs Sex: Male : 1955 Arrival Date: 10/14/2022 Time: 10:36 Bed 15 Private MD: ED Physician Elena Lamar HPI: 10/14 12:18 This 67 yrs old Male presents to ER via Ambulatory with complaints of Abnormal Lab sp3 Results. 12:18 67-year-old male with history of ME and kidney stones who is retired and currently sp3 obtaining treatment at [facility] for alcohol and methamphetamine addiction is sent here to the ED for chief complaint abnormal lab results on their outpatient labs. Patient had a mild elevated chloride and a total bilirubin of 1.3 and mild anemia per their records. Patient has no complaints whatsoever and does not understand why he is here other than to get the labs checked. He denies headache, fever, URI symptoms, chest pain, shortness of breath, back pain, abdominal pain, nausea, vomiting, diarrhea, rash, focal neurological deficit, syncope, near syncope, known sick contacts, travel history, or any other signs or symptoms on ROS at this time.. Historical: - Allergies: 11:08 No Known Allergies; ap3 - Home Meds: 11:08 carvedilol oral [Active]; atorvastatin oral [Active]; ap3 - PMHx: 11:08 Myocardial infarction; kidney stones; ap3 - Immunization history:: Client reports receiving the 2nd dose of the Covid vaccine. - Social history:: Smoking status: Patient denies any tobacco usage or history of. ROS: 12:19 Constitutional: Negative for fever, chills, and weight loss, Eyes: Negative for injury, sp3 pain, redness, and discharge, ENT: Negative for injury, pain, and discharge, Neck: Negative for injury, pain, and swelling, Cardiovascular: Negative for chest pain, palpitations, and edema, Respiratory: Negative for shortness of breath, cough, wheezing, and pleuritic chest pain, Abdomen/GI: Negative for abdominal pain, nausea, vomiting, diarrhea, and constipation, Back: Negative for injury and pain, MS/Extremity: Negative for injury and deformity, Skin: Negative for injury, rash, and discoloration, Neuro: Negative for headache, weakness, numbness, tingling, and seizure, Psych: Negative for depression, anxiety, suicide ideation, homicidal ideation, and hallucinations, Allergy/Immunology: Negative for hives, rash, and allergies, Endocrine: Negative for neck swelling, polydipsia, polyuria, polyphagia, and marked weight changes, Hematologic/Lymphatic: Negative for swollen nodes, abnormal bleeding, and unusual bruising. 12:19 All other systems are negative. Exam: 12:20 Constitutional: This is a well developed, well nourished patient who is awake, alert, sp3 and in no acute distress. Head/Face: Normocephalic, atraumatic. Eyes: Pupils equal round and reactive to light, extra-ocular motions intact. Lids and lashes normal. Conjunctiva and sclera are non-icteric and not injected. Cornea within normal limits. Periorbital areas with no swelling, redness, or edema. ENT: Nares patent. No nasal discharge, no septal abnormalities noted. External auditory canals are clear. Oropharynx with no redness, swelling, or masses, exudates, or evidence of obstruction, uvula midline. Mucous membranes moist. Neck: Trachea midline, no thyromegaly or masses palpated, and no cervical lymphadenopathy. Supple, full range of motion without nuchal rigidity, or vertebral point tenderness. No Meningismus. Chest/axilla: Normal chest wall appearance and motion. Nontender with no deformity. No lesions are appreciated. Cardiovascular: Regular rate and rhythm with a normal S1 and S2. No gallops, murmurs, or rubs. Normal PMI, no JVD. No pulse deficits. Respiratory: Lungs have equal breath sounds bilaterally, clear to auscultation and percussion. No rales, rhonchi or wheezes noted. No increased work of breathing, no retractions or nasal flaring. Abdomen/GI: Soft, non-tender, with normal bowel sounds. No distension or tympany. No guarding or rebound. No evidence of tenderness throughout. Back: No spinal tenderness. No costovertebral tenderness. Full range of motion. Skin: Warm, dry with normal turgor. Normal color with no rashes, no lesions, and no evidence of cellulitis. MS/ Extremity: Pulses equal, no cyanosis. Neurovascular intact. Full, normal range of motion. Neuro: Awake and alert, GCS 15, oriented to person, place, time, and situation. Cranial nerves II-XII grossly intact. Motor strength 5/5 in all extremities. Sensory grossly intact. Cerebellar exam normal. Normal gait. Psych: Awake, alert, with orientation to person, place and time. Behavior, mood, and affect are within normal limits. 12:20 ECG was reviewed by the Attending Physician. EKG demonstrates atrial fibrillation with a capture of 62 bpm with normal axis, poor R wave progression in the precordial leads, nonspecific diffuse ST/T changes somewhat limited by the fibrillation. Vital Signs: 11:06 BP 144 / 82; Pulse 72; Resp 18; Pulse Ox 100% ; Weight 81.65 kg; Height 6 ft. 0 in. ; ap3 13:00 BP 149 / 78; Pulse 81; Resp 18; Pulse Ox 98% on R/A; ph 14:30 BP 152 / 70; Pulse 72; Resp 19; Pulse Ox 98% on R/A; ph 15:45 BP 138 / 78; Pulse 68; Resp 18; Temp 98; Pulse Ox 98% on R/A; ph 11:06 Body Mass Index 24.41 (81.65 kg, 182.88 cm) ap3 MDM: 11:13 Patient medically screened. sp3 12:28 Data reviewed: vital signs, nurses notes, lab test result(s), radiologic studies. ED sp3 course: 67-year-old male sent with "abnormal labs" which in my clinical judgment are not significantly abnormal to the point that they need to be rechecked emergently however since he is here we will recheck them. However we did find patient in atrial fibrillation with a Rate of 62. When asked, he states that he has been in this in the past and used to be on Xarelto but was taken off secondary to urinating blood. That was in the distant past and he has not been on any medication since then. He does not take any antiplatelet agents. His rate is just regular enough where the irregular heartbeat was not picked up on physical exam however on EKG there are absent P waves and patient is clearly in atrial fibrillation. I had discussion with the patient on risk of stroke and he agrees that also due to his methamphetamine use he has a subsequent increase in risk. Patient understands risk of being back on anticoagulants and states he will stop them on any abnormal bleeding and will return here for any complications, chest pain or significant bleeding. So of the labs come back within clinical normal range without any significant abnormalities, we will safely discharge patient home on 5 mg Eliquis every 12 hours p.o. with follow-up to cardiology.. 12:57 ED course: Patient's total bilirubin is now elevated compared to what it was and his sp3 hemoglobin is down to 8.2. INR at 1.68 without being on any anticoagulants. At this point I cannot start Eliquis secondary to these findings. We will admit patient for cardiology consult patient will likely need hematology as well. Will defer to inpatient team for further work-up for his abnormalities.. 13:10 ED course: Discussed with inpatient team. They would like to add CT scan of the abdomen sp3 pelvis which I will add on. Patient will be admitted to their service.. 10/14 11:13 Order name: Blood Culture Adult (2) [facility] 10/14 11:13 Order name: CBC with Diff; Complete Time: 12:57 [facility] 10/14 11:13 Order name: CMP; Complete Time: 12:54 [facility] 10/14 11:13 Order name: Lactate w/ 2H reflex if indic.; Complete Time: 12:54 3 10/14 11:13 Order name: Protime (+inr); Complete Time: 12:54 3 10/14 11:13 Order name: Ptt, Activated; Complete Time: 12:54 3 10/14 11:13 Order name: Urinalysis w/ reflexes; Complete Time: 12:54 3 10/14 11:13 Order name: Troponin High Sensitivity; Complete Time: 12:54 3 10/14 12:56 Order name: CBC Smear Scan; Complete Time: 12:57 [facility] 10/14 11:13 Order name: Chest Single View XRAY; Complete Time: 12:54 3 10/14 14:07 Order name: Abdomen ; Complete Time: 14:46 EDPA 10/14 11:13 Order name: EKG; Complete Time: 11:13 3 10/14 13:38 Order name: CONS Physician Consult EDPA 10/14 11:13 Order name: Cardiac monitoring; Complete Time: 12:13 3 10/14 11:13 Order name: EKG - Nurse/Tech; Complete Time: 12:10 3 10/14 11:13 Order name: IV Saline Lock - Large Bore; Complete Time: 15:17 3 10/14 11:13 Order name: Labs collected and sent; Complete Time: 12:10 sp3 10/14 11:13 Order name: O2 Sat Monitoring; Complete Time: 12:13 sp3 10/14 11:13 Order name: Vital Signs; Complete Time: 12:13 sp3 Administered Medications: No medications were administered Disposition Summary: 10/14/22 13:11 Hospitalization Ordered Hospitalization Status: Inpatient Admission sp3 Provider: Nam Carballo sp3 [facility] sp3 Condition: Stable sp3 Problem: an acute exacerbation sp3 Symptoms: have worsened sp3 Bed/Room Type: Standard sp3 Room Assignment: 230(10/14/22 13:59) ja1 Diagnosis - Atrial fibrillation, elevated bilirubin, anemia, coagulopathy sp3 Forms: - Medication Reconciliation Form sp3 - SBAR form sp3 - Leadership Thank You Letter sp3 Signatures: Dispatcher [employer] EDTommy Ball RN RN ja1 Sharon Bailey RN RN ap3 Elena Lamar MD MD sp3 Corrections: (The following items were deleted from the chart) 13:59 13:11 sp3 ja1 14:08 13:10 Abdomen Pelvis W Con+CT.RAD.BRZ ordered. EDMS EDMS
--- NOTE | 2022-10-14 13:12 | ER ---
Nurse's Notes [facility] Name: Micky Pugh Age: 67 yrs Sex: Male : 1955 Arrival Date: 10/14/2022 Time: 10:36 Bed 15 Private MD: Diagnosis: Atrial fibrillation, elevated bilirubin, anemia, coagulopathy Presentation: 10/14 11:06 Chief complaint: Patient states: he was sent from [facility] for elevated bilirubin ap3 and chloride, also for being anemic and the possibility of needing a blood transfusion. Coronavirus screen: At this time, the client does not indicate any symptoms associated with coronavirus-19. Ebola Screen: No symptoms or risks identified at this time. Initial Sepsis Screen: Does the patient meet any 2 criteria? No. Patient's initial sepsis screen is negative. Does the patient have a suspected source of infection? No. Patient's initial sepsis screen is negative. Risk Assessment: Do you want to hurt yourself or someone else? Patient reports no desire to harm self or others. Onset of symptoms was October 14, 2022. 11:06 Method Of Arrival: Ambulatory ap3 11:06 Acuity: AISSATOU 3 ap3 Triage Assessment: 11:09 General: Appears in no apparent distress. Behavior is calm, cooperative, appropriate ap3 for age. Pain: Denies pain. Neuro: Level of Consciousness is awake, alert, obeys commands, Oriented to person, place, time, situation. Cardiovascular: Patient's skin is warm and dry. Respiratory: Airway is patent Respiratory effort is even, unlabored. Historical: - Allergies: 11:08 No Known Allergies; ap3 - Home Meds: 11:08 carvedilol oral [Active]; atorvastatin oral [Active]; ap3 - PMHx: 11:08 Myocardial infarction; kidney stones; ap3 - Immunization history:: Client reports receiving the 2nd dose of the Covid vaccine. - Social history:: Smoking status: Patient denies any tobacco usage or history of. Screenin:[address] [facility] ED Fall Risk Assessment (Adult) History of falling in the last 3 months, ap3 including since admission No falls in past 3 months (0 pts). Abuse screen: Denies threats or abuse. Nutritional screening: No deficits noted. Tuberculosis screening: No symptoms or risk factors identified. Assessment: 13:00 General: Appears in no apparent distress. comfortable, Behavior is calm, cooperative, ph agitated. Pain: Denies pain. Neuro: Level of Consciousness is awake, alert, obeys commands, Oriented to person, place, time, situation, Reports dizziness, weakness. Cardiovascular: Capillary refill < 3 seconds in bilateral fingers Patient's skin is warm and dry. Respiratory: Airway is patent Respiratory effort is even, unlabored, Respiratory pattern is regular, symmetrical. GI: Abdomen is round non-distended. Derm: Skin is healthy with good turgor, Skin is pale. Vital Signs: 11:06 BP 144 / 82; Pulse 72; Resp 18; Pulse Ox 100% ; Weight 81.65 kg; Height 6 ft. 0 in. ; ap3 13:00 BP 149 / 78; Pulse 81; Resp 18; Pulse Ox 98% on R/A; ph 14:30 BP 152 / 70; Pulse 72; Resp 19; Pulse Ox 98% on R/A; ph 15:45 BP 138 / 78; Pulse 68; Resp 18; Temp 98; Pulse Ox 98% on R/A; ph 11:06 Body Mass Index 24.41 (81.65 kg, 182.88 cm) ap3 ED Course: 10:39 Patient arrived in ED. mr 10:45 Elena Lamar MD is Attending Physician. sp3 11:08 Triage completed. ap3 11:10 Arm band placed on right wrist. ap3 11:45 Missed attempt(s): 22 gauge in right hand. bc6 12:10 Troponin High Sensitivity Sent. bc6 12:10 Blood Culture Adult (2) Sent. bc6 12:10 CBC with Diff Sent. bc6 12:10 CMP Sent. bc6 12:10 Lactate w/ 2H reflex if indic. Sent. bc6 12:10 Protime (+inr) Sent. bc6 12:10 Ptt, Activated Sent. bc6 12:11 Carrie Fox, RN is Primary Nurse. ph 12:11 Urinalysis w/ reflexes Sent. bc6 12:11 Missed attempt(s): 22 gauge in right upper arm. bc6 12:21 Chest Single View XRAY In Process Unspecified. EDMS 13:10 Nam Carballo is Hospitalizing Provider. sp3 13:16 Patient has correct armband on for positive identification. Bed in low position. Call ph light in reach. Side rails up X 1. surveillance monitor on. Pulse ox on. NIBP on. 14:00 Inserted saline lock: 22 gauge forearm, using aseptic technique. aw1 15:46 No provider procedures requiring assistance completed. Patient admitted, IV remains in ph place. Administered Medications: No medications were administered Medication: 12:13 VIS not applicable for this client. ph Outcome: 13:11 Decision to Hospitalize by Provider. sp3 16:02 Patient left the ED. ph 16:02 Admitted to Tele accompanied by tech, via wheelchair, Report called to DWAINE Dior ph 16:02 Condition: stable 16:02 Instructed on the need for admit. Signatures: Dispatcher [employer] Alise England Carrie Fox RN RN [facility], DWAINE Herrera RN ap3 Elena Lamar MD MD sp3 Christelle Kapadia [facility] Claudia Turner aw1
--- NOTE | 2022-10-14 14:45 | RAD REPORT ---
EXAM DESCRIPTION: CT - Abdomen Pelvis W Contrast - 10/14/2022 2:12 pm CLINICAL HISTORY: Abdominal pain COMPARISON: none. TECHNIQUE: Computed axial tomography of the abdomen pelvis was obtained. 100 cc Isovue-300 was admin istered intravenously. Oral contrast was not requested which limits evaluation of bowel and appendix All CT scans are performed using dose optimization technique as appropriate and may include automated exposure control or mA/KV adjustment according to patient size. FINDINGS: The heart is moderately enlarged. Small to moderate right and small left pleural effusions Liver, spleen, pancreas and adrenals are unremarkable. Cholelithiasis. Gallbladder is contracted and poorly evaluated. Small amount of fluid gallbladder fos sa Multiple bilateral renal calculi without hydronephrosis. Mild right renal cortical thinning probably secondary prior inflammation. The left kidney is small with cortical thinning presumably secondary to prior inflammation. Normal appendix. No evidence diverticulitis. Small umbilical hernias. Prostate gland mildly enlarged. Trace amount of free fluid IMPRESSION: Small to moderate right and small left pleural effusions Cholelithiasis. Gallbladder is contracted and not well visualized. Small amount of fluid within the g allbladder fossa. Ultrasound recommended Bilateral nonobstructing renal calculi
[2022-10-14 16:30] VITALS: BMI 24.4
[2022-10-14] MEDS ORDERED: ONDANSETRON 4 MG/2 ML VIAL IV PRN (17:33)
[2022-10-14] MEDS ORDERED: ACETAMINOPHEN 500 MG TAB PO PRN (17:33)
--- NOTE | 2022-10-14 17:56 | P.HP ---
Certification for Inpatient Patient admitted to: Observation With expected LOS: <2 Midnights Patient will require the following post-hospital care: None Practitioner: I am a practitioner with admitting privileges, knowledge of patient current condition, hospital course, and medical plan of care. Services: Services provided to patient in accordance with Admission requirements found in Title 42 Section 412.3 of the Code of Federal Regulations Patient History Date of Service: 10/14/22 Reason for admission: Atrial fibrillation, anemia, elevated bilirubin History of Present Illness: 67-year-old male with history of [place], atrial fibrillation and kidney stones, presented to the ER with complaint of abnormal lab results . Patient currently obtaining treatment at the [facility] for alcohol and methamphetamine [place] addiction. This facility send the patient to the ED because of the abnormal labs done in the outpatient lab. Patient denies chest pain shortness of breath back pain, abdominal pain, nausea vomiting, diarrhea, rash, syncope. ED course, labs significant for low hemoglobin of 8.2, hematocrit 28.8 BUN 23, creatinine 1.40, GFR 54, total bilirubin 1.6. PT 18.5,. 12:57 ED course: Patient's total bilirubin is now elevated compared to what it was and his hemoglobin is down to 8.2. INR at 1.68 without being on any anticoagulants. A CT abdomen and pelvis with contrast shows small to moderate right and small left pleural effusions, cholelithiasis, small amount of fluid within the gallbladder fossa. Lateral nonobstructing renal calculi. Chest x-ray shows mild CHF. Vital signs blood pressure 144/82, pulse 72, respiration 18, pulse ox of 100% on room air. Planning to admit the patient with atrial fibrillation, elevated bilirubin, anemia, and coagulopathy. Allergies No Known Allergies Allergy (Unverified 10/14/22 13:55) Home Medications: Amlodipine [Norvasc*] 1 tab PO DAILY 10/14/22 Atorvastatin Calcium 1 tab PO DAILY 10/14/22 Carvedilol [Coreg] 1 tab PO BID 10/14/22 - Past Medical/Surgical History Has patient received pneumonia vaccine in the past: Yes Diabetic: No -: NH 2013 -: Lithroplasty 2021 - Social History Smoking Status: Never smoker Place of Residence: Home Review of Systems 10-point ROS is otherwise unremarkable Physical Examination - Vital Signs Temperature: 98 F Blood Pressure: 138/78 Pulse: 68 Respirations: 18 Pulse Ox (%): 100 - Physical Exam General: Alert, Oriented x3 HEENT: Atraumatic, Normocephalic, PERRLA Neck: 2+ carotid pulse no bruit Respiratory: Clear to auscultation bilaterally, Normal air movement Cardiovascular: No edema, Irregular heart rate/rhythm Capillary refill: <2 Seconds Gastrointestinal: Normal bowel sounds Musculoskeletal: No clubbing, No swelling Integumentary: No rashes, No breakdown Neurological: Normal gait, Normal speech - Studies Laboratory Data (last 24 hrs) 10/14/22 10/14/22 10/14/22 11:55 11:55 11:55 WBC 6.20 Hgb 8.2 L Hct 26.8 L Plt Count 221 PT 18.5 H INR 1.68 APTT 33.0 Sodium 141 Potassium 3.7 BUN 23 H Creatinine 1.40 H Glucose 100 Total Bilirubin 1.6 H AST 12 L ALT 17 Alkaline Phosphatase 81 Assessment and Plan - Plan Assessment and plan atrial fibrillation, elevated bilirubin, anemia, coagulopathy cholelithiasis, Assessment and plan atrial fibrillation, -Chronic, rate controlled, patient denies chest pain palpitation. Patient currently obtaining treatment at the [facility] for alcohol and methamphetamine [place] addiction send the patient to the hospital for the evaluation of abnormal lab work. Cardiology consulted For for finding the appropriate anticoagulant for this patient. elevated bilirubin -Patient's bilirubin is 1.6 anemia, coagulopathy cholelithiasis, -low hemoglobin of 8.2, hematocrit 28.8 BUN 23, PT 18.5, -Patient denies any any bleeding, denies hematuria, denies any melena -We will repeat a CBC in a.m. -GI consult CODE STATUS full code DVT ordered Diet cardiac diet - Advance Directives Does patient have a Living Will: No Does patient have a Durable POA for Healthcare: No - Code Status/Comfort Care Code Status Assessed: Yes (full code) Code Status: Full Code Critical Care: No Time Spent Managing Pts Care (In Minutes): 55 (minute)
[2022-10-14] MEDS: carvediloL 25 MG TAB PO SCH (20:57)
[2022-10-14] MEDS ORDERED: POTASSIUM CL SA 10 MEQ TAB PO ONE (21:00)
[2022-10-15 03:32] LABS: Absolute Lymphocytes (CBC) 0.9 K/uL (0.7-4.9); Hematocrit 25.2 % (39.6-49.0); Lymphocytes % 15.8 % (15.3-44.8); MCV 75.1 fL (80-100); MPV 9.2 fL (7.6-11.3); Platelets 190 thou/uL (152-406); RBC Red Blood Cell Count 3.36 M/uL (4.33-5.43)
[2022-10-15 03:50] LABS: Potassium 3.9 mEq/L (3.5-5.1)
[2022-10-15] MEDS ORDERED: POTASSIUM CL SA 10 MEQ TAB PO ONE (09:00)
[2022-10-15] MEDS: AMLODIPINE 5 MG TAB PO SCH (09:54)
[2022-10-15] MEDS: ATORVASTATIN 40 MG TAB PO SCH (09:54)
[2022-10-15] MEDS: carvediloL 25 MG TAB PO SCH ×2 (09:54→20:32)
--- NOTE | 2022-10-15 14:16 | EKG ---
Test Date: 2022-10-14 Test Time: 12:08:56 Jumpbasting Machine Operator: MILE MEASUREMENT RESULTS: Intervals: Rate: 62 NV: QRSD: 80 QT: 466 QTc: 472 [place]: P: NV: QRS: 105 T: 41 INTERPRETIVE STATEMENTS: Atrial fibrillation Anteroseptal infarct, age undetermined Abnormal ECG Electronically Signed On 10-15-22 14:14:53 CDT by Jovi Fernandez
[2022-10-15] MEDS ORDERED: Ringers Lactate 1,000 ML IV ONE (14:49)
--- NOTE | 2022-10-15 14:59 | P.PN ---
Subjective Date of Service: 10/15/22 Chief Complaint: Atrial fibrillation, anemia, elevated bilirubin Patient has no new complaint. He states he feels fine. He denies any shortness of breath. He denies any palpitations. Physical Examination - Vital Signs Temperature: 97.1 F Blood Pressure: 141/65 Pulse: 61 Respirations: 20 Pulse Ox (%): 100 Assessment And Plan - Plan Physical Exam General: Alert, Oriented x3 HEENT: Atraumatic, Normocephalic, PERRLA Neck: 2+ carotid pulse no bruit Respiratory: Clear to auscultation bilaterally, Normal air movement Cardiovascular: No edema, Irregular heart rhythm, normal rate Gastrointestinal: Normal bowel sounds Musculoskeletal: No swelling Integumentary: No rashes, No breakdown Neurological: No focal motor deficit. Normal speech. Assessment and plan Chronic atrial fibrillation, Elevated bilirubin, Anemia, Coagulopathy Cholelithiasis, Assessment and plan Atrial fibrillation, Rate controlled. 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 He also has coagulopathy. Elevated bilirubin/coagulopathy Chronic liver disease suspected Avoid anticoagulation for now. Essential hypertension Coreg resumed. Microcytic anemia ow hemoglobin of 8.2, hematocrit 28.8 BUN 23, PT 18.5, Patient denies any any bleeding, denies hematuria, denies any melena. Microcytic anemia suggest GI bleed GI consulted. Patient was seen by Dr. Pelayo who is planning EGD today. Monitor H&H and transfuse as needed for hemoglobin of 7. CODE STATUS full code
[2022-10-15] MEDS ORDERED: LIDOCAINE 1% MPF 30 ML VIAL ONE (17:06)
[2022-10-15] MEDS ORDERED: propofoL 200 MG/20 ML VIAL IV ONE (17:06)
[2022-10-15] MEDS ORDERED: BISACODYL E.C. 5 MG TAB PO ONE (20:06)
[2022-10-15] MEDS: METOCLOPRAMIDE 10 MG/2mL INJ IV SCH (20:30)
[2022-10-15] MEDS ORDERED: MAGNESIUM CITRATE 300 ML BOT PO SCH (21:00)
[2022-10-15] MEDS ORDERED: GOLYTELY 4000 ML PO SCH (21:00)
[2022-10-16] MEDS: METOCLOPRAMIDE 10 MG/2mL INJ IV SCH ×2 (03:03→08:38)
[2022-10-16 03:16] LABS: Absolute Lymphocytes (CBC) 0.9 K/uL (0.7-4.9); Hematocrit 24.3 % (39.6-49.0); MCV 74.7 fL (80-100); Platelets 192 thou/uL (152-406); RBC Red Blood Cell Count 3.26 M/uL (4.33-5.43)
[2022-10-16 03:33] LABS: Potassium 3.7 mEq/L (3.5-5.1)
[2022-10-16] MEDS: AMLODIPINE 5 MG TAB PO SCH (08:38)
[2022-10-16] MEDS: carvediloL 25 MG TAB PO SCH (08:39)
[2022-10-16] MEDS ORDERED: Ringers Lactate 1,000 ML IV ONE (09:31)
[2022-10-16] MEDS ORDERED: propofoL 200 MG/20 ML VIAL IV ONE (10:09)
[2022-10-16 10:50] VITALS: O2SAT 97
[2022-10-16] MEDS: ATORVASTATIN 40 MG TAB PO SCH (12:49)
--- NOTE | 2022-10-16 13:54 | RAD REPORT ---
EXAM DESCRIPTION: RAD - Small Bowel Series - 10/16/2022 12:26 pm CLINICAL HISTORY: IRON DEFICIENCY ANEMIA COMPARISON: Abdomen Pelvis W Contrast dated 10/14/2022 TECHNIQUE: Serial AP views of the abdomen were obtained for studying the small bowel following oral administration of barium contrast. FINDINGS: [facility] film shows a nonspecific bowel gas pattern. No obstruction or free air. No suspiciou s calcifications. Gastric size and mucosal fold pattern are normal. No delay in transit of contrast into the small jony l. Small bowel is normal in diameter with no mucosal fold thickening. No abnormal filling defects. No intrinsic or extrinsic mass identifiable. Terminal ileum has a normal appearance. Transit time to th e colon is normal, 40 minutes. IMPRESSION: Normal small bowel series.
[2022-10-16] MEDS ORDERED: POTASSIUM CL SA 10 MEQ TAB PO ONE (14:00)
[2022-10-16 15:35] VITALS: BP 158/79; TEMP 97.1
--- NOTE | 2022-10-16 16:02 | P.DS ---
Admission Date: 10/14/22 Discharge Date: 10/16/22 Disposition: ROUTINE DISCHARGE Discharge Condition: FAIR Reason for Admission: Atrial fibrillation, anemia, elevated bilirubin Brief History of Present Illness: 67-year-old male with history of [place], atrial fibrillation and kidney stones, presented to the ER with complaint of abnormal lab results . Patient currently obtaining treatment at the [facility] for alcohol and methamphetamine addiction. This facility send the patient to the ED because of the abnormal labs done in the outpatient lab. Patient denies chest pain shortness of breath back pain, abdominal pain, nausea vomiting, diarrhea, rash, syncope. ED course, labs significant for low hemoglobin of 8.2, hematocrit 28.8 BUN 23, creatinine 1.40, GFR 54, total bilirubin 1.6. PT 18.5,. 12:57 ED course: Patient's total bilirubin elevated compared to what it was and his hemoglobin was down to 8.2. INR at 1.68 without being on any anticoagulants. A CT abdomen and pelvis with contrast shows small to moderate right and small left pleural effusions, cholelithiasis, small amount of fluid within the gallbladder fossa. Lateral nonobstructing renal calculi. Chest x-ray showed mild CHF. Vital signs blood pressure 144/82, pulse 72, respiration 18, pulse ox of 100% on room air. Planning to admit the patient with atrial fibrillation, elevated bilirubin, anemia, and coagulopathy. Patient was hospitalized for further management. Hospital Course: Diagnosis Chronic atrial fibrillation, Elevated bilirubin, Anemia, Coagulopathy Cholelithiasis, Assessment and plan Atrial fibrillation, Rate controlled. 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 He also has coagulopathy. No anticoagulation for now until source of bleeding identified. Elevated bilirubin/coagulopathy Chronic liver disease suspected Avoiding anticoagulation for now. Essential hypertension Coreg resumed. Microcytic anemia ow hemoglobin of 8.2, hematocrit 28.8 BUN 23, PT 18.5, Patient denied any any bleeding, denies hematuria, denies any melena. Microcytic anemia suggest GI bleed GI consulted. Patient was seen by Dr. Pelayo, colonoscopy showed polyp which was removed. Small bowel received was unremarkable. GI recommended capsule endoscopy Hemoglobin was stable between 7 and 8. Patient did not require blood transfusion. Vital Signs/Physical Exam: Temp Pulse Resp BP Pulse Ox 97.1 F 57 16 158/79 H 98 10/16/22 15:34 10/16/22 15:34 10/16/22 15:34 10/16/22 15:34 10/16/22 15:34 General: Alert, In no apparent distress, Oriented x3 HEENT: Mucous membr. moist/pink Neck: JVD not distended Respiratory: Clear to auscultation bilaterally, Normal air movement Cardiovascular: Normal S1 S2, Irregular heart rate/rhythm Gastrointestinal: Normal bowel sounds, Soft and benign, Non-distended, No tenderness Musculoskeletal: No swelling, No tenderness Integumentary: No rashes, No cyanosis Neurological: Normal strength at 5/5 x4 extr Laboratory Data at Discharge: WBC 5.00 thou/uL (4.3-10.9) 10/16/22 02:31 Hgb 7.6 g/dL (13.6-17.9) L 10/16/22 02:31 Hct 24.3 % (39.6-49.0) L 10/16/22 02:31 Plt Count 192 thou/uL (152-406) 10/16/22 02:31 PT 18.5 SECONDS (9.5-12.5) H 10/14/22 11:55 INR 1.68 10/14/22 11:55 APTT 33.0 SECONDS (24.3-36.9) 10/14/22 11:55 Sodium 140 mEq/L (136-145) 10/16/22 02:31 Potassium 3.7 mEq/L (3.5-5.1) 10/16/22 02:31 BUN 16 mg/dL (7-18) 10/16/22 02:31 Creatinine 1.11 mg/dL (0.70-1.30) 10/16/22 02:31 Glucose 88 mg/dL (74-106) 10/16/22 02:31 Total Bilirubin 1.6 mg/dL (0.2-1.0) H 10/14/22 11:55 AST 12 U/L (15-37) L 10/14/22 11:55 ALT 17 U/L (16-61) 10/14/22 11:55 Alkaline Phosphatase 81 U/L (45-117) 10/14/22 11:55 Home Medications: Amlodipine [Norvasc*] 1 tab PO DAILY 10/14/22 Atorvastatin Calcium 1 tab PO DAILY 10/14/22 Carvedilol [Coreg] 1 tab PO BID 10/14/22 Pantoprazole [Protonix Tab] 40 mg PO DAILY #30 tab 10/16/22 New Medications: Pantoprazole [Protonix Tab] 40 mg PO DAILY #30 tab Diet: AHA Activity: Ad jarrell Followup: NONE,NONE [Primary Care Provider] - Gene Pelayo MD [ASSOCIATE-ACTIVE - CAN ADMIT] - (Within 2 to 4 weeks for arrangement for capsule endoscopy.) Time spent managing pt's care (in minutes): 32
--- NOTE | 2022-10-17 17:12 | EKG ---
Test Date: 2022-10-15 Test Time: 10:10:05 Drug Abuse Technician: CINDY MEASUREMENT RESULTS: Intervals: Rate: 58 [place]: QRSD: 78 QT: 450 QTc: 441 [place]: P: [place]: QRS: 106 T: 4 INTERPRETIVE STATEMENTS: Atrial fibrillation with slow ventricular response Rightward axis Abnormal ECG Compared to ECG 10/14/2022 12:08:56 Right-axis deviation now present Myocardial infarct finding no longer present Electronically Signed On 10-17-22 17:07:01 CDT by Jovi Fernandez
== END 2022-10-16 17:14 | disposition home or self-care (01) | DRG 377 ==
LOC: ER 10:36 → ERHOLD 13:34 → 2ND 14:38
PROVIDERS: ADMIT Internal Medicine; ATTEND Internal Medicine
PROC: 0DB68ZX Excision of Stomach, Via Natural or Artificial Opening Endoscopic, Diagnostic (ICD-10-PCS; 2022-10-15)
PROC: 0DB78ZX Excision of Stomach, Pylorus, Via Natural or Artificial Opening Endoscopic, Diagnostic (ICD-10-PCS; 2022-10-15)
PROC: 0DBM8ZZ Excision of Descending Colon, Via Natural or Artificial Opening Endoscopic (ICD-10-PCS; principal; 2022-10-16 09:45)
DX: K25.0 Acute gastric ulcer with hemorrhage (principal); K21.01 Gastro-esophageal reflux disease with esophagitis, with bleeding; I48.20 Chronic atrial fibrillation, unspecified; D68.9 Coagulation defect, unspecified; K29.71 Gastritis, unspecified, with bleeding; K29.81 Duodenitis with bleeding; K63.5 Polyp of colon; K64.8 Other hemorrhoids; K64.4 Residual hemorrhoidal skin tags; K59.89 Other specified functional intestinal disorders; D50.9 Iron deficiency anemia, unspecified; K44.9 Diaphragmatic hernia without obstruction or gangrene; K76.9 Liver disease, unspecified; K80.20 Calculus of gallbladder without cholecystitis without obstruction; I25.2 Old myocardial infarction; Z79.02 Long term (current) use of antithrombotics/antiplatelets; Z79.899 Other long term (current) drug therapy
CPT/HCPCS: 36415; 71045; 74177; 74250; 80048; 80053; 81001; 83605; 84484; 85025; 85610; 85730; 87040; 88305; 88312; 93005; 94760; 99285; J2001; J2704; J2765; J7120